=== PATIENT | female | born 1955 | race Caucasian/White ===

== ENCOUNTER 2021-09-01 16:06 | Emergency (ER) | payer MEDICARE, OTHER ==
[2021-09-01 17:07] LABS: BASOPHIL 0.5 % (0-2); EOSINOPHIL 0.4 % (0-7); HCT 37.9 % (37.0-47.0); HGB 12.2 g/dl (12.5-16.0); MCH 28.6 pg (25.0-31.0); MCHC 32.2 g/dL (32.0-36.0); MONOCYTE 10.8 % (0-12); MPV 10.5 fL (6.0-9.5); NEUTROPHIL 74.8 % (41-80); NRBC 0; PLT 307 K/uL (150-400); RBC 4.26 M/uL (4.20-5.40); RDW 13.3 % (11.5-14.0); WBC 11.3 K/uL (4.0-10.5)
[2021-09-01 17:22] LABS: BUN/CREAT RATIO (CALC) 13.2 RATIO; CREATININE 0.68 mg/dL (0.51-0.95); POTASSIUM 3.2 mmol/L (3.5-5.1)
[2021-09-01 17:43] LABS: CORONAVIRUS 2019 SARS-COV-2 NEGATIVE (NEGATIVE); INFLUENZA A NAA NEGATIVE (NEGATIVE)
[2021-09-01] MEDS ORDERED: CEPHALEXIN750 MG PO (19:29)
[2021-09-01] MEDS ORDERED: VENTOLIN HFA IN18 GM INH (19:29)
[2021-09-01] MEDS ORDERED: ZPAK PO (19:29)
[2021-09-01] MEDS ORDERED: MEDROL 4MG DOSEP4 MG PO (19:29)
== END 2021-09-01 20:30 | disposition home or self-care (01) ==
LOC: FER 16:06
PROVIDERS: Nurse Practitioner Family
DX: J43.9 Emphysema, unspecified (principal); J18.9 Pneumonia, unspecified organism; Z20.822 Contact with and (suspected) exposure to COVID-19
CPT/HCPCS: 36415; 71045; 71275; 80048; 84484; 85025; 85379; 93005; J0696; J1100; J7030; Q9967; U0002